=== PATIENT | male | born 1940 | race Caucasian/White ===

== ENCOUNTER 2019-01-29 18:35 | Inpatient (IN) ==
--- NOTE | 2019-01-29 18:42 | Emergency Department Note ---
Disposition Clinical Impression: GI bleed Qualifiers: GI bleed type/associated pathology: melena Qualified Code(s): K92.1 - Melena CKD (chronic kidney disease) Qualifiers: Chronic kidney disease stage: unspecified stage Qualified Code(s): N18.9 - Chronic kidney disease, unspecified Disposition: Admitted As Inpatient Condition: Fair [facility] Provider[facility] - Time of Disposition: 20:32 General Adult HPI - General Stated complaint: GI Time Seen by Provider: 01/29/19 18:37 Source: patient Mode of arrival: ambulatory Limitations: no limitations Nursing Notes Reviewed: Yes Vital Signs Reviewed: Yes - History of Present Illness HPI Narrative: Patient is a 78-year-old male with a past medical history of CHF, pacemaker/defibrillator, [place], diabetes, high cholesterol and diverticulitis and partial small bowel obstruction presents to the ED for evaluation of hypotension and concern for bloody stools. Patient is complaining of shortness of breath since 5 days ago. 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 They were holding his Lasix due to a low systolic pressure of 100. Patient does admit to one week of black stool. His EF is 15%, hx of one stent placed and atrial flutter. Recently changed his apixaban and and plavis recently switched to Elliq uis. - Related Data Home Medications Medication Instructions Recorded Confirmed Atorvastatin [Lipitor] 40 mg PO HS 05/08/18 01/29/19 Clopidogrel [Plavix] 75 mg PO HS 05/08/18 01/29/19 Insulin Glargine,Hum.rec.anlog 5 units SQ BID 05/08/18 01/29/19 [Toujedavid Solostar] Insulin LISPRO [Humalog] 5 unit SQ TIDAC 05/08/18 01/29/19 Metoprolol Succinate [Kapspargo 12.5 mg PO Q12H 05/08/18 01/29/19 Sprinkle] Potassium Chloride [Klor-Con] 20 meq PO DAILY 05/08/18 01/29/19 Apixaban [Eliquis] 5 mg PO BID 01/29/19 01/29/19 Lisinopril 2.5 mg PO HS 01/29/19 01/29/19 Midodrine HCl 5 mg PO TID 01/29/19 01/29/19 Sertraline 2.5 mg PO DAILY 01/29/19 01/29/19 Allergies Allergy/AdvReac Type Severity Reaction Status Date / Time No Known Allergies Allergy Verified 01/29/19 18:48 All systems ED: reviewed and negative except as stated. Review of Systems: As Per HPI Cardiovascular: Reports: dyspnea on exertion. Denies: chest pain, palpitations Respiratory: Reports: cough, dyspnea. Denies: wheezes, hemoptysis, sputum production Gastrointestinal: Reports: melena. Denies: abdominal pain, nausea, vomiting, diarrhea, constipation, hematemesis, hematochezia Genitourinary: Denies: hematuria Integumentary: Denies: rash Past Medical History - Past Medical History Attestation: Yes The following information was validated with the patient. Medical history: Reports: CHF, diabetes, hyperlipidemia, hypertension, myocardial infarction - Social History Smoking Status: Former smoker Physical Exam - General Limitations: no limitations General appearance: alert, in no apparent distress - Head Head exam: atraumatic, normocephalic, normal inspection - Eye Eye exam: Present: normal appearance, PERRL, EOMI - ENT ENT exam: normal exam, normal oropharynx, mucous membranes moist - Neck Neck exam: Present: normal inspection, full ROM, trachea midline - Chest Chest inspection: Present: normal inspection, symmetric chest wall rise - Respiratory Respiratory exam: Present: normal lung sounds bilaterally. Absent: respiratory distress, wheezes, prolonged expiratory phase - Cardiovascular Cardiovascular exam: Present: regular rate, normal rhythm, normal heart sounds, +S1, +S2 - Abdominal Exam Abdominal exam: Present: soft, Non-Tender. Absent: tenderness, distention, guarding, rebound, rigidity - Rectal Exam Cathode Washer present during exam: Yes (Rosario, MS4) Rectal exam: Present: heme (+) stool. Absent: hemorrhoids - Male exam: Present: normal inspection - Extremities Exam Extremities exam: Present: normal inspection, full ROM. Absent: tenderness, pedal edema - Back Exam Back exam: Present: normal inspection, full ROM. Absent: tenderness - Neurological Exam Neurological exam: Present: alert, oriented X3 - Psychiatric Psychiatric exam: Present: normal affect, normal mood - Skin Skin exam: Present: warm, dry, intact, pallor Course Course Narrative: Patient undergo evaluation for GI bleed. - Reevaluation(s) Reevaluation #1: His initial blood pressure was 103/56. He is satting at 100% on room air. His heart rate is 85. And went workup with cardiac enzymes, chest x-ray, EKG, CBC and basic metabolic panel. CBC remarkable for hemoglobin of 7.3. 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 INR is 3.1. Patient's creatinine is 1.54 which is improved [facility] 1.[facility]. Troponin is negative. Patient will undergo transfusion with a total of 2 units after speaking with the hospitalist on-call. They agree to accept the patient. Time: 20:30 Vital Signs Temperature 98.2 F 01/29/19 18:38 Pulse Rate 85 01/29/19 18:38 Respiratory Rate 18 01/29/19 18:38 Blood Pressure 103/56 01/29/19 18:38 O2 Sat by Pulse Oximetry 100 01/29/19 18:38 Temperature 97.6 F 01/29/19 20:58 Pulse Rate 86 01/29/19 20:58 Respiratory Rate 16 01/29/19 20:58 Blood Pressure 82/49 01/29/19 20:58 O2 Sat by Pulse Oximetry 100 01/29/19 20:58 Oxygen Delivery Oxygen Delivery Room Air Medical Decision Making - Medical Records Medical records reviewed: Yes I reviewed the patient's medical records. - Lab Data Lab results reviewed: Yes I reviewed the patient's lab results. Result diagrams: 01/29/19 19:07 01/29/19 19:07 Lab Results 01/29/19 01/29/19 01/29/19 Range/Units 19:07 19:07 19:07 WBC 15.4 H (4.3-11.1) K/mcL RBC 3.23 L (4.19-5.50) M/mcL Hgb 7.3 L (12.9-16.9) g/dL Hct 24.6 L (37.5-50.1) % MCV 76.2 L (83.0-100.0) fL MCH 22.6 L (28.0-33.3) pg MCHC 29.7 L (31.6-35.5) g/dL RDW 17.1 H (11.5-14.5) % Plt Count 344 (140-400) K/mcL MPV 8.9 L (9.4-12.4) fL Immature Gran % 0.7 (0-4) % Seg Neutrophils % 73.6 % Lymphocytes % 13.1 % Monocytes % 11.7 % Eosinophils % 0.5 % Basophils % 0.4 % Neutrophils # 11.4 H (1.6-8.9) K/mcL Lymphocytes # 2.0 (0.6-4.6) K/mcL Monocytes # 1.8 H (0.0-1.3) K/mcL Eosinophils # 0.1 (0.0-0.6) K/mcL Basophils # 0.1 (0.0-0.2) K/mcL Nucleated RBCs/100 WBC 1.4 H (0) /100 WBC PT 34.8 H (9.4-12.1) Seconds INR 3.1 APTT 37.7 H (26.0-36.0) Seconds Sodium 129 L (136-145) mEq/L Potassium 4.7 (3.5-5.1) mEq/L Chloride 98 (98-107) mEq/L Carbon Dioxide 17 L (23-29) mEq/L BUN 53 H (8-23) mg/dL Creatinine 1.54 H (0.70-1.30) mg/dL Est GFR ( Amer) 53 L (> 60) Est GFR (Non-Af Amer) 44 L (> 60) BUN/Creatinine Ratio 34 H (6-26) Glucose 117 H (70-105) mg/dL Calculated Osmolality 283 (280-300) Calcium 8.8 (8.6-10.3) mg/dL Troponin I < 0.03 (< 0.04) ng/mL Stool Occult Bld Scrn (Negative) Blood Type Antibody Screen Crossmatch 01/29/19 01/29/19 Range/Units 19:07 19:50 WBC (4.3-11.1) K/mcL RBC (4.19-5.50) M/mcL Hgb (12.9-16.9) g/dL Hct (37.5-50.1) % MCV (83.0-100.0) fL MCH (28.0-33.3) pg MCHC (31.6-35.5) g/dL RDW (11.5-14.5) % Plt Count (140-400) K/mcL MPV (9.4-12.4) fL Immature Gran % (0-4) % Seg Neutrophils % % Lymphocytes % % Monocytes % % Eosinophils % % Basophils % % Neutrophils # (1.6-8.9) K/mcL Lymphocytes # (0.6-4.6) K/mcL Monocytes # (0.0-1.3) K/mcL Eosinophils # (0.0-0.6) K/mcL Basophils # (0.0-0.2) K/mcL Nucleated RBCs/100 WBC (0) /100 WBC PT (9.4-12.1) Seconds INR APTT (26.0-36.0) Seconds Sodium (136-145) mEq/L Potassium (3.5-5.1) mEq/L Chloride (98-107) mEq/L Carbon Dioxide (23-29) mEq/L BUN (8-23) mg/dL Creatinine (0.70-1.30) mg/dL Est GFR ( Amer) (> 60) Est GFR (Non-Af Amer) (> 60) BUN/Creatinine Ratio (6-26) Glucose (70-105) mg/dL Calculated Osmolality (280-300) Calcium (8.6-10.3) mg/dL Troponin I (< 0.04) ng/mL Stool Occult Bld Scrn Positive A (Negative) Blood Type O POSITIVE Antibody Screen NEGATIVE Crossmatch See Detail - Radiology Data Radiology results reviewed: Yes I reviewed the patient's radiology results. Chest X-Ray 01/29/19 18:51 IMPRESSION: Findings suggest congestive heart failure with an elevated right hemidiaphragm D/ / Gerardo Lazaro MD / Gerardo Lazaro MD Interpreting Provider: Gerardo Lazaro MD - EKG Data EKG #1 EKG attestation: Yes I reviewed and interpreted this EKG. EKG results narrative: EKG done at 18:46 shows sinus rhythm at a rate of 86 bpm. Normal axis. Intervals within normal limits. No signs of ischemia.
[2019-01-29] MEDS ORDERED: Isovue-370 500 ML BOTTLE IVP ONE (19:24)
[2019-01-29 19:27] LABS: Basophils # 0.1 K/mcL (0.0-0.2); Basophils % 0.4 %; Eosinophils # 0.1 K/mcL (0.0-0.6); Eosinophils % 0.5 %; Hematocrit 24.6 % (37.5-50.1); Hemoglobin 7.3 g/dL (12.9-16.9); Immature Granulocytes % 0.7 % (0-4); Lymphocytes % 13.1 %; Mean Corpuscular HGB Conc 29.7 g/dL (31.6-35.5); Mean Corpuscular Hemoglobin 22.6 pg (28.0-33.3); Mean Corpuscular Volume 76.2 fL (83.0-100.0); Mean Platelet Volume 8.9 fL (9.4-12.4); Monocytes # 1.8 K/mcL (0.0-1.3); Monocytes % 11.7 %; Neutrophils # 11.4 K/mcL (1.6-8.9); Nucleated Red Blood Cells 1.4 /100 WBC (0); Platelet Count 344 K/mcL (140-400); Red Blood Count 3.23 M/mcL (4.19-5.50); Red Cell Distribution Width 17.1 % (11.5-14.5); Segmented Neutrophils % 73.6 %; White Blood Count 15.4 K/mcL (4.3-11.1)
[2019-01-29 19:35] LABS: INR 3.1; Prothrombin Time 34.8 Seconds (9.4-12.1)
[2019-01-29 19:37] LABS: Activated Partial Thrombo Time 37.7 Seconds (26.0-36.0)
[2019-01-29 19:50] LABS: BUN/Creatinine Ratio 34 (6-26); Blood Urea Nitrogen 53 mg/dL (8-23); Calcium 8.8 mg/dL (8.6-10.3); Carbon Dioxide 17 mEq/L (23-29); Chloride 98 mEq/L (98-107); Glucose 117 mg/dL (70-105); Osmolality,Calculated 283 (280-300); Potassium 4.7 mEq/L (3.5-5.1); Sodium 129 mEq/L (136-145); eGFR For African Americans 53 (> 60); eGFR For Non-African Americans 44 (> 60)
[2019-01-29 19:51] LABS: Troponin I < 0.03 ng/mL (< 0.04)
[2019-01-29] MEDS ORDERED: 0.9 % Sodium Chloride 250 ML ONE (20:28)
--- NOTE | 2019-01-29 21:08 | Emergency Department Note ---
Disposition Clinical Impression: GI bleed Qualifiers: GI bleed type/associated pathology: melena Qualified Code(s): K92.1 - Melena CKD (chronic kidney disease) Qualifiers: Chronic kidney disease stage: unspecified stage Qualified Code(s): N18.9 - Chronic kidney disease, unspecified Disposition: Admitted As Inpatient Condition: Fair [facility] [Primary Care Provider[facility] - Time of Disposition: 21:08 General Adult HPI - General Chief complaint: ED GI Bleed Stated complaint: GI Time Seen by Provider: 01/29/19 18:37 Source: patient Mode of arrival: ambulatory Limitations: no limitations - History of Present Illness Pain Scale: 0 - Related Data Home Medications Medication Instructions Recorded Confirmed Atorvastatin [Lipitor] 40 mg PO HS 05/08/18 01/29/19 Clopidogrel [Plavix] 75 mg PO HS 05/08/18 01/29/19 Insulin Glargine,Hum.rec.anlog 5 units SQ BID 05/08/18 01/29/19 [Toujeo Solostar] Insulin LISPRO [Humalog] 5 unit SQ TIDAC 05/08/18 01/29/19 Metoprolol Succinate [Kapspargo 12.5 mg PO Q12H 05/08/18 01/29/19 Sprinkle] Potassium Chloride [Klor-Con] 20 meq PO DAILY 05/08/18 01/29/19 Apixaban [Eliquis] 5 mg PO BID 01/29/19 01/29/19 Lisinopril 2.5 mg PO HS 01/29/19 01/29/19 Midodrine HCl 5 mg PO TID 01/29/19 01/29/19 Sertraline 2.5 mg PO DAILY 01/29/19 01/29/19 Allergies Allergy/AdvReac Type Severity Reaction Status Date / Time No Known Allergies Allergy Verified 01/29/19 18:48 Cardiovascular: Reports: dyspnea on exertion. Denies: chest pain, palpitations Respiratory: Reports: cough, dyspnea. Denies: wheezes, hemoptysis, sputum production Gastrointestinal: Reports: melena. Denies: abdominal pain, nausea, vomiting, diarrhea, constipation, hematemesis, hematochezia Genitourinary: Denies: hematuria Integumentary: Denies: rash Past Medical History - Past Medical History Medical history: Reports: CHF, diabetes, hyperlipidemia, myocardial infarction - Social History Smoking Status: Former smoker Smokeless Tobacco Status: No Alcohol use: Reports: none Drug use: Reports: none Physical Exam - General Limitations: no limitations General appearance: alert, in no apparent distress Course Vital Signs Temperature 98.2 F 01/29/19 18:38 Pulse Rate 85 01/29/19 18:38 Respiratory Rate 18 01/29/19 18:38 Blood Pressure 103/56 01/29/19 18:38 O2 Sat by Pulse Oximetry 100 01/29/19 18:38 Temperature 97.6 F 01/29/19 20:58 Pulse Rate 86 01/29/19 20:58 Respiratory Rate 16 01/29/19 20:58 Blood Pressure 82/49 01/29/19 20:58 O2 Sat by Pulse Oximetry 100 01/29/19 20:58 Oxygen Delivery Oxygen Delivery Room Air Medical Decision Making - Lab Data Result diagrams: 01/29/19 19:07 01/29/19 19:07 Lab Results 01/29/19 01/29/19 01/29/19 Range/Units 19:07 19:07 19:07 WBC 15.4 H (4.3-11.1) K/mcL RBC 3.23 L (4.19-5.50) M/mcL Hgb 7.3 L (12.9-16.9) g/dL Hct 24.6 L (37.5-50.1) % MCV 76.2 L (83.0-100.0) fL MCH 22.6 L (28.0-33.3) pg MCHC 29.7 L (31.6-35.5) g/dL RDW 17.1 H (11.5-14.5) % Plt Count 344 (140-400) K/mcL MPV 8.9 L (9.4-12.4) fL Immature Gran % 0.7 (0-4) % Seg Neutrophils % 73.6 % Lymphocytes % 13.1 % Monocytes % 11.7 % Eosinophils % 0.5 % Basophils % 0.4 % Neutrophils # 11.4 H (1.6-8.9) K/mcL Lymphocytes # 2.0 (0.6-4.6) K/mcL Monocytes # 1.8 H (0.0-1.3) K/mcL Eosinophils # 0.1 (0.0-0.6) K/mcL Basophils # 0.1 (0.0-0.2) K/mcL Nucleated RBCs/100 WBC 1.4 H (0) /100 WBC PT 34.8 H (9.4-12.1) Seconds INR 3.1 APTT 37.7 H (26.0-36.0) Seconds Sodium 129 L (136-145) mEq/L Potassium 4.7 (3.5-5.1) mEq/L Chloride 98 (98-107) mEq/L Carbon Dioxide 17 L (23-29) mEq/L BUN 53 H (8-23) mg/dL Creatinine 1.54 H (0.70-1.30) mg/dL Est GFR ( Amer) 53 L (> 60) Est GFR (Non-Af Amer) 44 L (> 60) BUN/Creatinine Ratio 34 H (6-26) Glucose 117 H (70-105) mg/dL Calculated Osmolality 283 (280-300) Calcium 8.8 (8.6-10.3) mg/dL Troponin I < 0.03 (< 0.04) ng/mL Stool Occult Bld Scrn (Negative) Blood Type Antibody Screen Crossmatch 01/29/19 01/29/19 Range/Units 19:07 19:50 WBC (4.3-11.1) K/mcL RBC (4.19-5.50) M/mcL Hgb (12.9-16.9) g/dL Hct (37.5-50.1) % MCV (83.0-100.0) fL MCH (28.0-33.3) pg MCHC (31.6-35.5) g/dL RDW (11.5-14.5) % Plt Count (140-400) K/mcL MPV (9.4-12.4) fL Immature Gran % (0-4) % Seg Neutrophils % % Lymphocytes % % Monocytes % % Eosinophils % % Basophils % % Neutrophils # (1.6-8.9) K/mcL Lymphocytes # (0.6-4.6) K/mcL Monocytes # (0.0-1.3) K/mcL Eosinophils # (0.0-0.6) K/mcL Basophils # (0.0-0.2) K/mcL Nucleated RBCs/100 WBC (0) /100 WBC PT (9.4-12.1) Seconds INR APTT (26.0-36.0) Seconds Sodium (136-145) mEq/L Potassium (3.5-5.1) mEq/L Chloride (98-107) mEq/L Carbon Dioxide (23-29) mEq/L BUN (8-23) mg/dL Creatinine (0.70-1.30) mg/dL Est GFR ( Amer) (> 60) Est GFR (Non-Af Amer) (> 60) BUN/Creatinine Ratio (6-26) Glucose (70-105) mg/dL Calculated Osmolality (280-300) Calcium (8.6-10.3) mg/dL Troponin I (< 0.04) ng/mL Stool Occult Bld Scrn Positive A (Negative) Blood Type O POSITIVE Antibody Screen NEGATIVE Crossmatch See Detail Attestation Statement - Attestation Attestation: I reviewed the residents documentation and agree with the residents assessment and plan of care. I have personally had face to face time with the patient. (Brief History, Brief Exam, and MDM) I personally supervised and was present for the jefferson/critical portions of the following procedures completed by the resident: (add procedures performed here). 78 year old male presents to the ED from the [place] for GI bleed and is symptomatic. He has a postiive hemoccult and a hgb of 7.3, we will transfuse one unit and ABCT is pending. Have discussed case with Dr. Love with medicine and he has been accepted to medicine.
[2019-01-29] MEDS ORDERED: Naloxone 0.4 MG/ML INJ IVP PRN (21:30)
[2019-01-29] MEDS ORDERED: Pantoprazole 40 MG VIAL IVP STA (21:36)
--- NOTE | 2019-01-29 21:41 | Internal Med History&Physical ---
<Rocio Carlson R - Last Filed: 01/29/19 22:27> Date of Encounter: 01/29/19 Time of Encounter: 21:41 Internal Medicine - H&P: HPI Admitted From: Home History of present illness: Mr. Graham is a 78 year old male with a history of DM, CHF with AICD and EF of 1 5%, intermittent afib who presented to the emergency department with the complaint of worsening swelling over the past 5 days. Patient states that he has been dealing with "congestion" since he had a stent placed in March. He states the congestion is the worst in his abdomen and legs. He has also had worsening shortness of breath over these past 5 days and believes that he is in a CHF exacerbation. The patient does take Plavix and Eliquis for his stent and atrial fibrillation. His hemoglobin was found to be 7.3 while he was in the emergency department and when asked he noted that he has had some dark tarry stools for the past several days as well. He initially thought that it was due to the stool softeners that he takes as he suffers from constipation from time to time. He denies any abdominal pain and has not vomited any blood. He has had a decreased appetite and nausea since his CHF exacerbation started. He denies recent fevers, chills, chest pain or pressure, leg pain, other symptoms at this time. He does not believe that he has never been evaluated for a GI bleed before. Past Med Surg Social Fam HX - Past Medical History Medical history: CHF, diabetes, hyperlipidemia, myocardial infarction Additional medical history: hypotension, diverticulitis, - Past Surgical History Additional surgical history: Pacemaker - Social History Smoking Status: Former smoker Smokeless Tobacco Status: No Alcohol use: none Drug use: none Internal Medicine - H&P: Meds Atorvastatin [Lipitor] 40 mg PO HS 05/08/18 [History] Clopidogrel [Plavix] 75 mg PO HS 05/08/18 [History] Insulin Glargine,Hum.rec.anlog [Toujeo Solostar] 5 units SQ BID 05/08/18 [History] Insulin LISPRO [Humalog] 5 unit SQ TIDAC 05/08/18 [History] Metoprolol Succinate [Kapspargo Sprinkle] 12.5 mg PO Q12H 05/08/18 [History] Potassium Chloride [Klor-Con] 20 meq PO DAILY 05/08/18 [History] Apixaban [Eliquis] 5 mg PO BID 01/29/19 [History] Lisinopril 2.5 mg PO HS 01/29/19 [History] Midodrine HCl 5 mg PO TID 01/29/19 [History] Sertraline 2.5 mg PO DAILY 01/29/19 [History] Allergy/AdvReac Type Severity Reaction Status Date / Time No Known Allergies Allergy Verified 01/29/19 18:48 All Systems PM: A 10-system review of systems was performed and is negative for pertinent findings except as documented above in the HPI. - Constitutional Constitutional: anorexia, no chills - EENT Eyes: no blurry vision, no change in vision - Cardiovascular Cardiovascular ROS IM: dyspnea, dyspnea on exertion, edema, no chest pain, no lightheadedness, no syncope - Respiratory Respiratory: dyspnea, no cough, no wheezing - Gastrointestinal Gastrointestinal: constipation, melena, nausea, no abdominal pain - Genitourinary Genitourinary ROS male: no dysuria, no hematuria - Musculoskeletal Musculoskeletal ROS IM: no back pain, no joint swelling - Integumentary Integumentary IM: no rash, no jaundice - Neurological Neurological ROS: no confusion, no dizziness, no paresthesias, no vertigo - Endocrine Endocrine IM: fatigue - Allergic/Immunologic Allergic/Immunologic: no uticaria, no wheezing - Constitutional Vitals: Temp Pulse Resp BP Pulse Ox 97.6 F 85 16 91/58 100 01/29/19 20:58 01/29/19 21:16 01/29/19 21:16 01/29/19 21:16 01/29/19 21:16 General appearance: Present: A&O X 3, pleasant, no acute distress Exam: Patient evaluated and currently A&O 3 in no acute distress - Head Head exam: Present: atraumatic, normocephalic - Eye Eye exam: Present: EOMI, PERRL - ENT ENT exam: Present: normal exam, normal oropharynx - Neck Neck exam general surgery: Present: normal inspection. Absent: lymphadenopathy, tenderness - Respiratory Respiratory exam: Present: rales (mild in the lung bases). Absent: chest wall tenderness, wheezes - Cardiovascular Cardiovascular exam: Present: irregular rhythm - GI/Abdominal GI/Abdominal exam: Present: soft, no peritoneal signs. Absent: distended, firm, rebound, rigid, tenderness - Extremities Exam Extremities exam: Present: pedal edema (trace), warm. Absent: calf tenderness, tenderness - Neurological Exam Neurological exam: Present: alert, oriented X3, no focal deficits - Psychiatric Psychiatric exam: Present: normal affect, normal mood - Skin Skin exam: Present: dry, intact, warm Internal Med - H&P Results - Labs CBC & Chem 7: 01/29/19 19:07 01/29/19 19:07 Labs: Short CBC 01/29/19 Range/Units 19:07 WBC 15.4 H (4.3-11.1) K/mcL Hgb 7.3 L (12.9-16.9) g/dL Hct 24.6 L (37.5-50.1) % Plt Count 344 (140-400) K/mcL Neutrophils # 11.4 H (1.6-8.9) K/mcL BMP 01/29/19 19:07 Sodium 129 L Potassium 4.7 Chloride 98 Carbon Dioxide 17 L BUN 53 H Creatinine 1.54 H Glucose 117 H Calcium 8.8 Cardiac Enzymes 01/29/19 Range/Units 19:07 Troponin I < 0.03 (< 0.04) ng/mL - Impressions ITS Impressions Chest X-Ray 01/29/19 18:51 IMPRESSION: Findings suggest congestive heart failure with an elevated right hemidiaphragm D/ / Gerardo Lazaro MD / Gerardo Lazaro MD Interpreting Provider: Gerardo Lazaro MD Abdomen/Pelvis CT 01/29/19 19:24 IMPRESSION: Small moderate amount of abdominal ascites. Small hiatal hernia. Enlarged prostate gland. Diffuse wall thickening the urinary bladder may be related to chronic outlet obstruction. Correlation is recommended. Moderate right and trace left pleural effusions with dependent lower lobe airspace disease, likely atelectasis. D/ / Felicitas Pteit Cha, MD / Felicitas Petit Cha, MD Interpreting Provider: Felicitas Petit Cha, MD - Assessment and Plan (1) GI bleed Current Visit: Yes Status: Acute Assessment and plan: Patient's hemoglobin in the emergency Department 7.3 Fecal occult blood was positive Type and screen with 2 units of packed red blood cells - 1 to be given and 1 on standby 40mg IV protonix Consult acute care surgery - Dr. Amin recommends resuscitation at this point and re-evaluation for endoscopy tomorrow Qualifiers: GI bleed type/associated pathology: melena Qualified Code(s): K92.1 - Melena (2) Anemia Current Visit: Yes Status: Acute Assessment and plan: Hemoglobin 7.3 in the emergency department 2 units PRBCs ordered, transfusing 1 and 1 on hold Repeat CBC after transfusion Plan as above for GI bleed Qualifiers: Anemia type: unspecified type Qualified Code(s): D64.9 - Anemia, unspecified (3) CHF exacerbation Current Visit: Yes Status: Acute Assessment and plan: History of CHF with less than injection fraction of 15% Patient with 5 days of worsening shortness of breath and swelling Chest x-ray shows evidence of CHF exacerbation Due to the patient's anemia and hypotension 2 units of packed red blood cells were ordered We will gently diurese Echo to determine current ejection fraction in the morning Patient's blood pressure in the 100s/60s, continue to monitor Qualifiers: Heart failure type: unspecified Qualified Code(s): I50.9 - Heart failure, unspecified (4) Diabetes mellitus Current Visit: Yes Status: Acute Assessment and plan: Low-dose sliding scale insulin Cont home medications Qualifiers: Diabetes mellitus type: type 2 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: with [facility]p use Diabetes mellitus complication status: with other specified complication Qualified Code(s): E11.69 - Type 2 diabetes mellitus with other specified complication; Z79.4 - jail (current) use of insulin (5) CKD (chronic kidney disease) Current Visit: Yes Status: Acute Assessment and plan: Patient's creatinine 1.53 No baseline creatinine Due to CHF exacerbation we will not order additional fluids but will just transfuse blood at this time We will gently diurese with Lasix but continued to monitor the creatinine Qualifiers: Chronic kidney disease stage: unspecified stage Qualified Code(s): N18.9 - Chronic kidney disease, unspecified (6) DVT prophylaxis Current Visit: Yes Status: Acute Assessment and plan: EPCDs - Time Spent With Patient Total time spent is greater than 50% in coordination of care (as documented) at patient's floor/unit and/or counseling patient: <Dyan Watts - Last Filed: 01/29/19 23:45> Date of Encounter: 01/29/19 Internal Medicine - H&P: HPI History of present illness: Mr. Graham is a 78 year old male Past Med Surg Social Fam HX - Additional Family History Additional family history: Noncontributory All Systems PM: A 10-system review of systems was performed and is negative for pertinent findings except as documented above in the HPI. - Constitutional Vitals: Temp Pulse Resp BP Pulse Ox 97.6 F 86 18 105/66 96 01/29/19 21:50 01/29/19 22:00 01/29/19 22:00 01/29/19 22:00 01/29/19 22:00 Internal Med - H&P Results - Labs CBC & Chem 7: 01/29/19 19:07 01/29/19 19:07 Labs: Short CBC 01/29/19 Range/Units 19:07 WBC 15.4 H (4.3-11.1) K/mcL Hgb 7.3 L (12.9-16.9) g/dL Hct 24.6 L (37.5-50.1) % Plt Count 344 (140-400) K/mcL Neutrophils # 11.4 H (1.6-8.9) K/mcL BMP 01/29/19 19:07 Sodium 129 L Potassium 4.7 Chloride 98 Carbon Dioxide 17 L BUN 53 H Creatinine 1.54 H Glucose 117 H Calcium 8.8 Cardiac Enzymes 01/29/19 Range/Units 19:07 Troponin I < 0.03 (< 0.04) ng/mL - Impressions ITS Impressions Chest X-Ray 01/29/19 18:51 IMPRESSION: Findings suggest congestive heart failure with an elevated right hemidiaphragm D/ / Gerardo Lazaro MD / Gerardo Lazaro MD Interpreting Provider: Gerardo Lazaro MD Abdomen/Pelvis CT 01/29/19 19:24 IMPRESSION: Small moderate amount of abdominal ascites. Small hiatal hernia. Enlarged prostate gland. Diffuse wall thickening the urinary bladder may be related to chronic outlet obstruction. Correlation is recommended. Moderate right and trace left pleural effusions with dependent lower lobe airspace disease, likely atelectasis. D/ / Felicitas Petit Cha, MD / Felicitas Petit Cha, MD Interpreting Provider: Felicitas Petit Cha, MD - Time Spent With Patient Total time spent is greater than 50% in coordination of care (as documented) at patient's floor/unit and/or counseling patient: - Attending Attestation I performed a history and physical examination of the patient and discussed his management with the resident. I reviewed the resident's note and agree with the assessment and plan of care. In short patient is a 78-year-old male [facility] patient with a past medical history of heart failure with reduced ejection fraction with an EF of 15%, diabetes and atrial fibrillation currently on anticoagulation presented to the ED because of progressive shortness of breath over the past 5 days. On arrival patient was found to be anemic with a hemoglobin of 7.3 in the setting of reports of black tarry stools over the past 5 days. Hemoccult testing in the ED was positive. On arrival, patient was afebrile and hemodynamically stable with a blood pressure of 103/56, however, blood pressure dropped down to 82/49 several hours later. Patient was saturating 100% on 2 L. Patient was not tachycardic, however he is on a beta obinna. 2 large bore peripheral IV lines were placed and 1 unit of packed red blood cells was initiated. On my initial assessment in the patient, he was lying in bed in no acute distress mentating well. was at bedside. A detailed log of the patient's blood pressure was provided which showed a baseline systolic blood pressure in the upper 80s to 90s over the past month which appears to be his baseline. Remainder of labs notable for a leukocytosis of 15.4, mild hyponatremia 129, creatinine of 1.54 and INR 3.1. Chest x-ray showed findings suggestive of congestive heart failure with an elevated right hemidiaphragm. CT of the abdomen and pelvis showed a small amount of abdominal ascites. 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 Physical examination and notable for mild crackles at the right lung base. No evidence of lower extremity edema. EKG showing sinus rhythm. Patient denies any fever, chills, chest pain. Patient does report a productive cough. Patient admitted for possible upper GI bleed as well as CHF exacerbation. We will transfuse 1 unit of packed red blood cells; strict I's and O's and daily weights with care not to further exacerbate his fluid overload state given his EF of 15%. Trend hemoglobin. After 1 unit of blood and will gently diurese with Lasix. We will obtain echocardiogram for the morning. We will keep patient nothing by mouth for possible endoscopy in the morning. Holding anticoagulation. We will obtain pro-calcitonin level, sputum culture and urine antigen given patient's leukocytosis and reports of a productive cough to assess for evidence of airspac e disease. Consult to Gastroenterology. Consider cardiology consult for management of CHF.
[2019-01-29] MEDS ORDERED: D5% in Water 1,000 ML IVC PRN (21:55)
[2019-01-29] MEDS ORDERED: *HR* Dextrose 50 % in Water (Syg) 50 ML SYRINGE IVP PRN (21:55)
[2019-01-29] MEDS ORDERED: Dextrose Gel 15 GM/37.5 ML TUBE PO PRN ×2 (21:55)
[2019-01-29] MEDS ORDERED: Furosemide 20 MG/2 ML VIAL IVP ONE (21:57)
[2019-01-29] MEDS: Metoprolol XL (24 HR) Succ 25 MG TAB.ER.24H PO SCH (23:08)
[2019-01-29] MEDS: Insulin LISPRO 300 UNITS/3 ML VIAL SQ SCH (23:41)
[2019-01-30 01:13] LABS: Basophils % 0.3 %; Eosinophils # 0.1 K/mcL (0.0-0.6); Eosinophils % 0.7 %; Hematocrit 25.6 % (37.5-50.1); Hemoglobin 7.7 g/dL (12.9-16.9); Immature Granulocytes % 0.6 % (0-4); Lymphocytes # 1.5 K/mcL (0.6-4.6); Lymphocytes % 12.4 %; Mean Corpuscular HGB Conc 30.1 g/dL (31.6-35.5); Mean Corpuscular Hemoglobin 23.8 pg (28.0-33.3); Mean Platelet Volume 8.7 fL (9.4-12.4); Monocytes # 1.3 K/mcL (0.0-1.3); Monocytes % 10.6 %; Neutrophils # 8.9 K/mcL (1.6-8.9); Nucleated Red Blood Cells 1.6 /100 WBC (0); Platelet Count 319 K/mcL (140-400); Red Blood Count 3.24 M/mcL (4.19-5.50); Red Cell Distribution Width 18.7 % (11.5-14.5); Segmented Neutrophils % 75.4 %; White Blood Count 11.8 K/mcL (4.3-11.1)
[2019-01-30 01:26] LABS: Albumin 3.8 g/dL (3.5-5.7); Albumin/Globulin Ratio 1.4 (1.1-2.2); Bilirubin,Total 1.6 mg/dL (0.3-1.0); Calcium 8.6 mg/dL (8.6-10.3); Globulin 2.8 g/dL (2.4-3.5); Magnesium 2.3 mg/dL (1.6-2.6); Phosphorous 4.4 mg/dL (2.7-4.5); Potassium 4.8 mEq/L (3.5-5.1); Total Protein 6.6 g/dL (6.4-8.9)
[2019-01-30 05:23] LABS: Basophils % 0.2 %; Eosinophils # 0.1 K/mcL (0.0-0.6); Eosinophils % 0.7 %; Hemoglobin 7.7 g/dL (12.9-16.9); Immature Granulocytes % 0.6 % (0-4); Lymphocytes # 1.4 K/mcL (0.6-4.6); Lymphocytes % 12.5 %; Mean Corpuscular HGB Conc 30.8 g/dL (31.6-35.5); Mean Corpuscular Hemoglobin 23.9 pg (28.0-33.3); Mean Corpuscular Volume 77.6 fL (83.0-100.0); Mean Platelet Volume 8.6 fL (9.4-12.4); Monocytes # 1.3 K/mcL (0.0-1.3); Monocytes % 11.6 %; Neutrophils # 8.1 K/mcL (1.6-8.9); Nucleated Red Blood Cells 1.5 /100 WBC (0); Platelet Count 308 K/mcL (140-400); Red Blood Count 3.22 M/mcL (4.19-5.50); Red Cell Distribution Width 18.4 % (11.5-14.5); Segmented Neutrophils % 74.4 %; White Blood Count 10.9 K/mcL (4.3-11.1)
[2019-01-30 05:43] LABS: Calcium 8.6 mg/dL (8.6-10.3); Magnesium 2.3 mg/dL (1.6-2.6); Phosphorous 4.2 mg/dL (2.7-4.5); Potassium 4.6 mEq/L (3.5-5.1)
[2019-01-30] MEDS: Insulin LISPRO 300 UNITS/3 ML VIAL SQ SCH ×3 (06:05→21:34)
[2019-01-30] MEDS ORDERED: [UNRECOGNIZED DRUG - OTHER] SQ SCH (09:00)
[2019-01-30] MEDS ORDERED: INSULIN GLARGINE HUM REC ANLOG U SQ SCH (09:00)
[2019-01-30] MEDS ORDERED: Insulin DETEMIR 100 UNIT/ML X5UNITS SQ SCH (09:00)
[2019-01-30] MEDS: Metoprolol XL (24 HR) Succ 25 MG TAB.ER.24H PO SCH ×2 (09:23→21:45)
[2019-01-30] MEDS ORDERED: Perflutren Lipid Microsphere 1.3 ML in 0.9 % Sodium Chloride 8.7 ML IVP ONE (09:31)
--- NOTE | 2019-01-30 09:38 | Internal Med Progress Note ---
Hospitalist Progress Note - Encounter Date of Encounter: 01/30/19 Time of Encounter: 09:00 - Subjective Interval History: No acute events overnight - Exam Vitals: Temp Pulse Resp BP Pulse Ox 98.1 F 99 16 112/74 96 01/30/19 07:10 01/30/19 09:00 01/30/19 09:00 01/30/19 09:00 01/30/19 09:00 Exam: General appearance: Present: A&O X 3, no acute distress Head exam: Present: normocephalic Respiratory exam: decreased breath sounds Cardiovascular exam: Present: RRR, +S1, +S2. Absent: diastolic murmur, gallop, rubs, systolic murmur GI/Abdominal exam: Soft, NT, ND, +BS Extremities exam: Absent: pedal edema Neurological exam: Present: alert, oriented X3, no focal deficits. Absent: altered - Assessment and Plan (1) GI bleed Current Visit: Yes Status: Acute Assessment and Plan: Pt comes in with dark stools and a hemoglobin of 7.3 likely secondary to acute blood loss anemia from GI bleed Transfused 1 Unit of PRBC overnight. WIll transfuse to keep above 8 due to CAD Continue protonix BID. GI on board for colonoscopy (2) CHF exacerbation Current Visit: Yes Status: Acute Assessment and Plan: Has shortness of breath and pulmonary edema with acute worsening of chronic systolic CHF Continue BID lasix (3) Anemia Current Visit: Yes Status: Acute Assessment and Plan: Anemia 2/2 to acute blood loss. Transfuse to keep hgb > 8 (4) CKD (chronic kidney disease) Current Visit: Yes Status: Acute Assessment and Plan: CKD stage 3. No acute worsening. Monitor creatinine with diuresis (5) Diabetes mellitus Current Visit: Yes Status: Acute Assessment and Plan: On insulin and monitor fingersticks (6) DVT prophylaxis Current Visit: Yes Status: Acute Assessment and Plan: SCDs - Time Spent with Patient Total time spent is greater than 50% in coordination of care (as documented) at patient's floor/unit and/or counseling patient: Internal Medicine: Result - Labs CBC & Chem 7: 01/30/19 04:54 01/30/19 04:54 Labs: Short CBC 01/29/19 01/30/19 01/30/19 Range/Units 19:07 00:54 04:54 WBC 15.4 H 11.8 H 10.9 (4.3-11.1) K/mcL Hgb 7.3 L 7.7 L 7.7 L (12.9-16.9) g/dL Hct 24.6 L 25.6 L 25.0 L (37.5-50.1) % Plt Count 344 319 308 (140-400) K/mcL Neutrophils # 11.4 H 8.9 8.1 (1.6-8.9) K/mcL BMP 01/29/19 01/30/19 01/30/19 19:07 00:54 04:54 Sodium 129 L 128 L 129 L Potassium 4.7 4.8 4.6 Chloride 98 99 99 Carbon Dioxide 17 L 16 L 20 L BUN 53 H 57 H 56 H Creatinine 1.54 H 1.54 H 1.56 H Glucose 117 H 130 H 131 H Calcium 8.8 8.6 8.6 Cardiac Enzymes 01/29/19 Range/Units 19:07 Troponin I < 0.03 (< 0.04) ng/mL Liver Function 01/30/19 Range/Units 00:54 Total Bilirubin 1.6 H (0.3-1.0) mg/dL AST 21 (13-39) Units/L ALT 14 (7-52) Units/L Alkaline Phosphatase 69 (34-104) Units/L Albumin 3.8 (3.5-5.7) g/dL - ABG Interpretation ABG results: PT/INR, D-dimer PT 34.8 Seconds (9.4-12.1) H 01/29/19 19:07 - Impressions Impressions Chest X-Ray 01/29/19 18:51 IMPRESSION: Findings suggest congestive heart failure with an elevated right hemidiaphragm D/ / Gerardo Lazaro MD / Gerardo Lazaro MD Interpreting Provider: Gerardo Lazaro MD Abdomen/Pelvis CT 01/29/19 19:24 IMPRESSION: Small moderate amount of abdominal ascites. Small hiatal hernia. Enlarged prostate gland. Diffuse wall thickening the urinary bladder may be related to chronic outlet obstruction. Correlation is recommended. Moderate right and trace left pleural effusions with dependent lower lobe airspace disease, likely atelectasis. D/ / Felicitas Petit Cha, MD / Felicitas Petit Cha, MD Interpreting Provider: Felicitas Petit Cha, MD Chest X-Ray 01/30/19 04:00 IMPRESSION: 1. Possible slight improvement in pulmonary edema. 2. Right pleural effusion with adjacent atelectasis or pneumonia. D/ / Salvatore Fountain MD / Salvatore Fountain MD Interpreting Provider: Salvatore Fountain MD Consult Discharge Plan - Plan [facility]errals: [facility]Primary Care Provider[facility] - (1) GI bleed Qualifiers: GI bleed type/associated pathology: melena Qualified Code(s): K92.1 - Melena (2) CHF exacerbation Qualifiers: Heart failure type: unspecified Qualified Code(s): I50.9 - Heart failure, unspecified (3) Anemia Qualifiers: Anemia type: unspecified type Qualified Code(s): D64.9 - Anemia, unspecified (4) CKD (chronic kidney disease) Qualifiers: Chronic kidney disease stage: unspecified stage Qualified Code(s): N18.9 - Chronic kidney disease, unspecified (5) Diabetes mellitus Qualifiers: Diabetes mellitus type: type 2 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
--- NOTE | 2019-01-30 10:29 | Anesthesia Evaluation PreOp ---
Date of Encounter: 01/30/19 Time of Encounter: 13:48 - Past History Planned Operation: EGD Cardiac History: Denies any Significant Hx (CHF, diabetes, hyperlipidemia, myocardial infarction Additional medical history: hypotension, diverticulitis,), NC, CHF, Hyperlipidemia, Pacemaker/ICD (AICD - interogated today - not pacer dependent) EDUCATIONAL THERAPIST History: Denies Any Significant HX Other Medical History: Diabetes Type II, Other (transfused 1 unit PRBC 01/29/19) Anesthesia History: No Prior Anesthetic Complications Alcohol Use: none Drug use: none Medications and Allergies Atorvastatin [Lipitor] 40 mg PO HS 05/08/18 [History] Clopidogrel [Plavix] 75 mg PO HS 05/08/18 [History] Insulin Glargine,Hum.rec.anlog [Toujeo Solostar] 5 units SQ BID 05/08/18 [History] Insulin LISPRO [Humalog] 5 unit SQ TIDAC 05/08/18 [History] Metoprolol Succinate [Kapspargo Sprinkle] 12.5 mg PO Q12H 05/08/18 [History] Potassium Chloride [Klor-Con] 20 meq PO DAILY 05/08/18 [History] Apixaban [Eliquis] 5 mg PO BID 01/29/19 [History] Lisinopril 2.5 mg PO HS 01/29/19 [History] Midodrine HCl 5 mg PO TID 01/29/19 [History] Sertraline 2.5 mg PO DAILY 01/29/19 [History] Allergy/AdvReac Type Severity Reaction Status Date / Time No Known Allergies Allergy Verified 01/29/19 18:48 - Meds/Allergy Pre-op Review Medications Reviewed: Yes Allergies Reviewed: Yes Beta Blockers on Current Med List: Yes If Beta Blockers taken, Date/Time (Last Dose taken): not given on floor - npo status Anesthesia Results - Labs 01/30/19 04:54 01/30/19 04:54 - Imaging EKG: report reviewed (SR) Additional studies: Echo with Imaging Enhancement Agent Name: Arun Graham Date of Study: 01/30/2019 EV/EV echocardiogram w enhance Impressions: LVEF 25%. Severe global and regional LV systolic dysfunction. Indeterminate diastolic function. Definity echo contrast was used. There is no LV thrombus. Right ventricular structure and systolic function are not optimally evaluated. Mild mitral regurgitation. Moderate tricuspid regurgitation. Mild pulmonic regurgitation. Moderate-severe pulmonary hypertension. A device lead was visualized in the right atrium and right ventricle. No prior echo for comparison. EXAMINATION: ONE XRAY VIEW OF THE CHEST 01/30/2019 5:46 am COMPARISON: 01/29/2019 HISTORY: ORDERING SYSTEM PROVIDED HISTORY: CHF exacerbation FINDINGS: There may be slight improvement in pulmonary edema. Right pleural effusion is noted with adjacent airspace disease. The heart size is mildly enlarged. Left chest AICD is again noted. There is no discernible pneumothorax. XR/XR chest 1V portable IMPRESSION: 1. Possible slight improvement in pulmonary edema. 2. Right pleural effusion with adjacent atelectasis or pneumonia. Anesthesia Exam Vital Signs/O2 Sat, Most Current Temp Pulse Resp BP Pulse Ox 98.3 F 95 16 107/65 96 01/30/19 12:00 01/30/19 13:00 01/30/19 13:00 01/30/19 13:00 01/30/19 13:00 NPO (# of Hours): > 8 hrs Pain Scale: 0 Pain Scale Used: Numeric (1 - 10) - HEENT Pupil (Motor): Pupils equal, EOMI Mallampati: II Teeth: Missing Denture Type: Upper: Complete Oral Opening: Greater than 3 - EDUCATIONAL THERAPIST LOC: Oriented EDUCATIONAL THERAPIST Motor: Normal RUE, Normal LUE, Normal RLE, Normal LLE, Normal Face EDUCATIONAL THERAPIST Sensory: Normal: RUE, LUE, RLE, LLE, Face - Cardiac Rhythm: Regular Murmur: None JVD: No Carotid Bruit: No - Pulmonary Breath Sounds: bilateral Clear Respiratory Effort: Symmetrical Anesthesia Assess/Plan ASA Score: 4 Anesthetic Plan: General (Plan B), MAC (PLan A) Autologous Blood: Yes Monitoring Plan: Standard Monitors Recovery Plan: ICU
--- NOTE | 2019-01-30 11:04 | Gastroenterology Consult Note ---
<Carmel Adam - Last Filed: 01/30/19 11:01> Date of Encounter: 01/30/19 Time of Encounter: 09:50 - Assessment and plan (1) GI bleed Status: Acute Assessment and plan: 78-year-old male who presented with increased shortness of breath. He has anemia has been transfused 1 unit PRBCs. He is complaining of one week history of melena. We will proceed with an EGD today to rule out esphagitis, gastritis, duodenitis, peptic ulcer disease, Susannah-Li tear or AVM. He is on chronic anticoagulation due to recent coronary artery stenting in March 2018. If no source of bleeding found he will need a colonoscopy. Qualifiers: GI bleed type/associated pathology: melena Qualified Code(s): K92.1 - Melena (2) Anemia Status: Acute Qualifiers: Anemia type: unspecified type Qualified Code(s): D64.9 - Anemia, unspecified - Time Spent With Patient Total time spent is greater than 50% in coordination of care (as documented) at patient's floor/unit and/or counseling patient: GI History of Present Illness - Data of Consult Patient: new to practice Consult date: 01/30/19 Requesting Physician: Tapan Love MD - Consult Narrative Reason for consult: melena, anemia History of present illness: Mr. Graham is a 78 year old male with a history of DM, CHF with AICD and EF of 15%, intermittent afib who presented to the emergency department with the complaint of worsening swelling over the past 5 days. Patient states that he has been dealing with "congestion" since he had a stent placed in March. He states the congestion is the worst in his abdomen and legs. He has also had worsening shortness of breath over these past 5 days. He also complains of in creased fatigue. The patient does take Plavix and Eliquis for his stent and atrial fibrillation. His hemoglobin was found to be 7.3 while he was in the emergency department and he admitted to dark tarry stools for the past week. He denies abdominal pain, GERD, or diarrhea. He admits to some constipation and takes stool softeners as needed. He reports one non-bloody emesis, denies nausea at this time. He denies recent fevers, chills, chest pain or pressure, leg pain, other symptoms at this time. He does not believe that he has never been evaluated for a GI bleed before. Anticoagulants: Plavix and Eliquis on hold Colonoscopy: at least 10 years ago per pt Past Med Surg Social Fam HX - Past Medical History Medical history: CHF, diabetes, hyperlipidemia, hypertension, myocardial infarction Additional medical history: hypotension, diverticulitis, - Past Surgical History Surgical History: angioplasty/stent, pacemaker/AICD Additional surgical history: Pacemaker - Social History Smoking Status: Former smoker Smokeless Tobacco Status: No Alcohol use: none Drug use: none - Family History Father Hx Family Cancer: Yes (Lung, throat) Review of Systems: GI: as per HABEMATOLEL GENERAL: denies fever, has some chills EYES: denies yellow discoloration ENT: denies pain with swallowing or difficulty swallowing CARDIO: see hpi RESP: Shortness of breath with exertion : denies change in color of urine NEURO: weakness HEME: Denies any bruising MS: denies joint pain, joint swelling or back pain. DERM: denies rash or itching PSYCH: Denies history of anxiety or depression - Constitutional Vitals: Temp Pulse Resp BP Pulse Ox 98.1 F 99 16 112/74 96 01/30/19 07:10 01/30/19 09:00 01/30/19 09:00 01/30/19 09:00 01/30/19 09:00 Exam: CONSTITUTIONAL:alert, no acute distress.HEAD:normocephalic.EYES:no jaundice.NECK:no obvious swelling.HEART:regular rate and rhythm, no murmurs.LUNGS:bilateral poor air entry.ABDOMEN:non distended, soft, non tender, no masses palpable, no organomegaly.RECTAL EXAM:Deferred.E XTREMITIES:no clubbing, cyanosis or edema.SKIN:pallor noted, no stigmata of chronic liver disease.NEUROLOGIC:no obvious focal defect. Results - Labs CBC & Chem 7: 01/30/19 04:54 01/30/19 04:54 Labs: Last Result 01/30/19 01/30/19 00:54 04:54 Calcium 8.6 8.6 Entire Visit 01/30/19 01/30/19 01/30/19 00:54 00:54 04:54 Hgb 7.7 L 7.7 L Hct 25.6 L 25.0 L Total Bilirubin 1.6 H AST 21 ALT 14 - ABG ABG results: PT/INR, D-dimer PT 34.8 Seconds (9.4-12.1) H 01/29/19 19:07 - Impressions Impressions Chest X-Ray 01/29/19 18:51 IMPRESSION: Findings suggest congestive heart failure with an elevated right hemidiaphragm D/ / Gerardo Lazaro MD / Gerardo Lazaro MD Interpreting Provider: Gerardo Lazaro MD Abdomen/Pelvis CT 01/29/19 19:24 IMPRESSION: Small moderate amount of abdominal ascites. Small hiatal hernia. Enlarged prostate gland. Diffuse wall thickening the urinary bladder may be related to chronic outlet obstruction. Correlation is recommended. Moderate right and trace left pleural effusions with dependent lower lobe airspace disease, likely atelectasis. D/ / Felicitas Petit Cha, MD / Felicitas Petit Cha, MD Interpreting Provider: Felicitas Petit Cha, MD Chest X-Ray 01/30/19 04:00 IMPRESSION: 1. Possible slight improvement in pulmonary edema. 2. Right pleural effusion with adjacent atelectasis or pneumonia. D/ / Salvatore Fountain MD / Salvatore Fountain MD Interpreting Provider: Salvatore Fountain MD Consult Discharge Plan - Plan [facility] Care Provider[facility] - 02/06/19 10:30 am Prescriptions: Furosemide [Lasix] 40 mg PO DAILY #60 tab Omeprazole [PriLOSEC] 40 mg PO BIDAC #60 capsule. <Sriram Weiner - Last Filed: 02/05/19 03:46> Date of Encounter: 01/30/19 - Time Spent With Patient Total time spent is greater than 50% in coordination of care (as documented) at patient's floor/unit and/or counseling patient: GI History of Present Illness - Data of Consult Requesting Physician: Tapan Love MD - Consult Narrative History of present illness: Mr. Graham is a 78 year old male - Constitutional Vitals: Temp Pulse Resp BP Pulse Ox 97.6 F 90 16 97/63 98 02/01/19 06:55 02/01/19 06:55 02/01/19 06:55 02/01/19 06:55 02/01/19 10:11 Results - Labs CBC & Chem 7: 02/01/19 04:05 02/01/19 04:05 - ABG ABG results: PT/INR, D-dimer PT 34.8 Seconds (9.4-12.1) H 01/29/19 19:07 - Attending Attestation Patient with multiple medical issues as indicated above with low EF and severe anemia with apparently no previous anemia workup. Recommend EGD and colonoscopy to determine GI etiology if, present once patient optimized. I have personally performed a face to face evaluation on this patient. I have reviewed and agree with the care plan. History and Exam by me shows:
[2019-01-30] MEDS ORDERED: Pantoprazole 40 MG VIAL IVP SCH (11:41)
[2019-01-30] MEDS ORDERED: Furosemide 40 MG/4 ML VIAL IVP SCH (12:30)
--- NOTE | 2019-01-30 14:35 | Electrocardiograph Report ---
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
[2019-01-30] MEDS ORDERED: Lidocaine -MPF 2% 2 ML VIAL ONE (15:08)
[2019-01-30] MEDS ORDERED: *HR* Propofol 200 MG/20 ML VIAL IVP ONE (15:09)
[2019-01-30] MEDS ORDERED: *HR* Etomidate 40 MG/20 ML VIAL IVP ONE (15:10)
[2019-01-30] MEDS ORDERED: Naloxone 0.4 MG/ML INJ IVP PRN (15:42)
[2019-01-30] MEDS ORDERED: Isovue-370 500 ML BOTTLE IVP ONE (15:42)
[2019-01-30] MEDS ORDERED: *HR* Dextrose 50 % in Water (Syg) 50 ML SYRINGE IVP PRN (15:42)
[2019-01-30] MEDS ORDERED: Dextrose Gel 15 GM/37.5 ML TUBE PO PRN ×2 (15:42)
[2019-01-30] MEDS ORDERED: D5% in Water 1,000 ML IVC PRN (15:42)
[2019-01-30] MEDS ORDERED: 0.9 % Sodium Chloride 500 ML ONE (17:42)
[2019-01-30] MEDS ORDERED: Insulin LISPRO 300 UNITS/3 ML VIAL SQ SCH (18:00)
[2019-01-30] MEDS: Furosemide 40 MG/4 ML VIAL IVP SCH (19:50)
[2019-01-30] MEDS: Pantoprazole 40 MG VIAL IVP SCH (19:50)
[2019-01-30] MEDS ORDERED: 0.9 % Sodium Chloride 250 ML ONE (21:44)
[2019-01-30] MEDS: Insulin DETEMIR 100 UNIT/ML X5UNITS SQ SCH (22:50)
[2019-01-31 05:20] LABS: Basophils % 0.2 %; Eosinophils # 0.2 K/mcL (0.0-0.6); Eosinophils % 1.9 %; Hematocrit 28.3 % (37.5-50.1); Hemoglobin 9.1 g/dL (12.9-16.9); Immature Granulocytes % 0.6 % (0-4); Lymphocytes # 1.5 K/mcL (0.6-4.6); Mean Corpuscular HGB Conc 32.2 g/dL (31.6-35.5); Mean Corpuscular Hemoglobin 25.3 pg (28.0-33.3); Mean Corpuscular Volume 78.6 fL (83.0-100.0); Mean Platelet Volume 8.7 fL (9.4-12.4); Monocytes # 1.3 K/mcL (0.0-1.3); Monocytes % 12.8 %; Neutrophils # 7.1 K/mcL (1.6-8.9); Nucleated Red Blood Cells 0.9 /100 WBC (0); Platelet Count 259 K/mcL (140-400); Red Cell Distribution Width 19.4 % (11.5-14.5); Segmented Neutrophils % 69.5 %; White Blood Count 10.2 K/mcL (4.3-11.1)
[2019-01-31 05:38] LABS: Calcium 8.2 mg/dL (8.6-10.3); Phosphorous 3.9 mg/dL (2.7-4.5); Potassium 3.7 mEq/L (3.5-5.1)
[2019-01-31] MEDS: Pantoprazole 40 MG VIAL IVP SCH ×2 (05:57→17:12)
--- NOTE | 2019-01-31 07:40 | Internal Med Progress Note ---
Hospitalist Progress Note - Encounter Date of Encounter: 01/31/19 Time of Encounter: 07:30 - Subjective Interval History: S/p endoscopy overnight. Stable this am - Exam Vitals: Temp Pulse Resp BP Pulse Ox 97.8 F 107 18 98/61 95 01/31/19 07:27 01/31/19 07:27 01/31/19 07:27 01/31/19 07:27 01/31/19 07:27 Exam: General appearance: Present: A&O X 3, no acute distress Head exam: Present: normocephalic Respiratory exam: decreased breath sounds Cardiovascular exam: Present: RRR, +S1, +S2. Absent: diastolic murmur, gallop, rubs, systolic murmur GI/Abdominal exam: Soft, NT, ND, +BS Extremities exam: Absent: pedal edema Neurological exam: Present: alert, oriented X3, no focal deficits. Absent: altered - Assessment and Plan (1) GI bleed Current Visit: Yes Status: Acute Assessment and Plan: Pt comes in with dark stools and a hemoglobin of 7.3 likely secondary to acute blood loss anemia from GI bleed Transfused 1 Unit of PRBC overnight. WIll transfuse to keep above 8 due to CAD Continue protonix BID. 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 Transfuse to keep hgb > 8 (4) CKD (chronic kidney disease) Current Visit: Yes Status: Acute Assessment and Plan: CKD stage 3. No acute worsening. Monitor creatinine with diuresis (5) Diabetes mellitus Current Visit: Yes Status: Acute Assessment and Plan: On insulin and monitor fingersticks (6) DVT prophylaxis Current Visit: Yes Status: Acute Assessment and Plan: SCDs - Time Spent with Patient Total time spent is greater than 50% in coordination of care (as documented) at patient's floor/unit and/or counseling patient: Internal Medicine: Result - Labs CBC & Chem 7: 01/31/19 04:09 01/31/19 04:09 Labs: Short CBC 01/31/19 Range/Units 04:09 WBC 10.2 (4.3-11.1) K/mcL Hgb 9.1 L (12.9-16.9) g/dL Hct 28.3 L (37.5-50.1) % Plt Count 259 (140-400) K/mcL Neutrophils # 7.1 (1.6-8.9) K/mcL BMP 01/31/19 04:09 Sodium 132 L Potassium 3.7 Chloride 98 Carbon Dioxide 22 L BUN 45 H Creatinine 1.52 H Glucose 129 H Calcium 8.2 L - ABG Interpretation ABG results: PT/INR, D-dimer PT 34.8 Seconds (9.4-12.1) H 01/29/19 19:07 - Impressions Impressions Echocardiogram 01/30/19 21:57 Impressions: LVEF 25%. Severe global and regional LV systolic dysfunction. Indeterminate diastolic function. Definity echo contrast was used. There is no LV thrombus. Right ventricular structure and systolic function are not optimally evaluated. Mild mitral regurgitation. Moderate tricuspid regurgitation. Mild pulmonic regurgitation. Moderate-severe pulmonary hypertension. A device lead was visualized in the right atrium and right ventricle. No prior echo for comparison. Left Ventricular Wall Motion: Rest Echo Findings The apical inferior, mid inferior, basal inferior, apical anterior, mid anterior, basal anterior, basal inferior septal, mid anterior lateral, mid inferior lateral, basal anterior septal and basal inferior lateral mercer were hypokinetic. The apex, apical septal, mid inferior septal, apical lateral and mid anterior septal mercer were akinetic. All other wall segments showed normal motion. Findings: Study Quality * Technically adequate exam. ECG Findings * Unclear underlying rhythm. Left Ventricle * Indeterminate diastolic function. * Definity echo contrast was used. * There is no LV thrombus. * LVEF 25%. * LV chamber size is normal. Right Ventricle * Right ventricular structure and systolic function are not optimally evaluated. Left Atrium * Normal left atrial size. Right Atrium * Moderately dilated right atrium. Aortic Valve * No aortic regurgitation. * Trileaflet aortic valve. * Mildly calcified aortic valve leaflets with decreased leaflet excursion. * No aortic stenosis. Mitral Valve * Mild mitral regurgitation. * Normal mitral valve structure. * No mitral stenosis. Tricuspid Valve * Normal tricuspid valve structure. * Moderate tricuspid regurgitation. * Estimated RA pressure is 20 mmHg. * Estimated RVSP is 62 mmHg. * Moderate-severe pulmonary hypertension. Pulmonic Valve * Pulmonic valve is not well visualized. * No pulmonic stenosis. * Mild pulmonic regurgitation. Pulmonary Artery * Pulmonary artery not well visualized. Aorta * Normally sized aortic root. Pericardium * There is no pericardial effusion present. Device lead * A device lead was visualized in the right atrium and right ventricle. Interatrial Septum * No evidence of PFO by color Doppler. IVC * The IVC is dilated. * < 50% respiratory change. Consult Discharge Plan - Plan [facility]errals: [facility] [Primary Care Provider[facility] - (1) GI bleed Qualifiers: GI bleed type/associated pathology: melena Qualified Code(s): K92.1 - Melena (2) CHF exacerbation Qualifiers: Heart failure type: unspecified Qualified Code(s): I50.9 - Heart failure, unspecified (3) Anemia Qualifiers: Anemia type: unspecified type Qualified Code(s): D64.9 - Anemia, unspecified (4) CKD (chronic kidney disease) Qualifiers: Chronic kidney disease stage: unspecified stage Qualified Code(s): N18.9 - Chronic kidney disease, unspecified (5) Diabetes mellitus Qualifiers: Diabetes mellitus type: type 2 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
[2019-01-31] MEDS: Insulin LISPRO 300 UNITS/3 ML VIAL SQ SCH ×4 (09:12→21:21)
[2019-01-31] MEDS: Insulin DETEMIR 100 UNIT/ML X5UNITS SQ SCH ×2 (09:13→21:31)
[2019-01-31] MEDS: Furosemide 40 MG/4 ML VIAL IVP SCH ×2 (12:47→17:12)
[2019-01-31] MEDS: Metoprolol XL (24 HR) Succ 25 MG TAB.ER.24H PO SCH ×2 (12:47→21:31)
[2019-02-01 04:42] LABS: Basophils % 0.3 %; Eosinophils # 0.2 K/mcL (0.0-0.6); Eosinophils % 2.2 %; Hematocrit 28.3 % (37.5-50.1); Hemoglobin 8.8 g/dL (12.9-16.9); Immature Granulocytes % 0.4 % (0-4); Lymphocytes # 1.5 K/mcL (0.6-4.6); Lymphocytes % 13.5 %; Mean Corpuscular HGB Conc 31.1 g/dL (31.6-35.5); Mean Corpuscular Hemoglobin 25.1 pg (28.0-33.3); Mean Corpuscular Volume 80.6 fL (83.0-100.0); Mean Platelet Volume 8.6 fL (9.4-12.4); Monocytes # 1.3 K/mcL (0.0-1.3); Monocytes % 11.9 %; Neutrophils # 7.8 K/mcL (1.6-8.9); Nucleated Red Blood Cells 0.6 /100 WBC (0); Platelet Count 236 K/mcL (140-400); Red Blood Count 3.51 M/mcL (4.19-5.50); Red Cell Distribution Width 19.4 % (11.5-14.5); Segmented Neutrophils % 71.7 %; White Blood Count 10.9 K/mcL (4.3-11.1)
[2019-02-01 05:10] LABS: Blood Urea Nitrogen 36 mg/dL (8-23); Calcium 8.1 mg/dL (8.6-10.3); Carbon Dioxide 23 mEq/L (23-29); Chloride 101 mEq/L (98-107); Glucose 129 mg/dL (70-105); Magnesium 1.9 mg/dL (1.6-2.6); Osmolality,Calculated 286 (280-300); Phosphorous 3.1 mg/dL (2.7-4.5); Potassium 3.4 mEq/L (3.5-5.1); Sodium 133 mEq/L (136-145)
[2019-02-01 05:26] LABS: BUN/Creatinine Ratio 26 (6-26); eGFR For African Americans > 60 (> 60); eGFR For Non-African Americans 50 (> 60)
[2019-02-01] MEDS: Pantoprazole 40 MG VIAL IVP SCH (06:32)
[2019-02-01 06:59] VITALS: BP 97/63
[2019-02-01] MEDS: Insulin LISPRO 300 UNITS/3 ML VIAL SQ SCH (07:31)
--- NOTE | 2019-02-01 08:08 | Discharge Summary ---
Date of Encounter: 02/01/19 Time of Encounter: 08:00 - Discharge Diagnosis (1) GI bleed Priority: Primary Status: Acute Assessment and Plan: 78 year old male with a history of DM, CHF with AICD and EF of 15%, intermittent afib who presented to the emergency department with the complaint of worsening swelling over the past 5 days. Patient states that he has been dealing with "congestion" since he had a stent placed in March. He states the congestion is the worst in his abdomen and legs. He has also had worsening shortness of breath over these past 5 days and believes that he is in a CHF exacerbation. The patient does take Plavix and Eliquis for his stent and atrial fibrillation. His hemoglobin was found to be 7.3 while he was in the emergency department and when asked he noted that he has had some dark tarry stools for the past several days as well. He was assessed with acute blood loss anemia 2/2 to GI bleed and acute on chronic systolic CHF. He came in with dark stools and a hemoglobin of 7.3 likely secondary to acute blood loss anemia from GI bleed. He was transfused a total of 3 units of PRBC. HE had an endoscopy done showing a bleeding angiodysplastic lesion which was cauterized. Discussed with Dr. Weiner, due to recent stent placement less than a year ago, will resume plavix and eliquis on discharge. Fro his worsening CHF, he was diuresed with lasix BID and he improved. He was discharged in a stable condition. 35 minutes was spent discharging this patient Qualifiers: GI bleed type/associated pathology: melena Qualified Code(s): K92.1 - Melena (2) CHF exacerbation Priority: Primary Status: Acute Qualifiers: Heart failure type: unspecified Qualified Code(s): I50.9 - Heart failure, unspecified (3) Anemia Priority: Primary Status: Acute Qualifiers: Anemia type: unspecified type Qualified Code(s): D64.9 - Anemia, unspecified (4) CKD (chronic kidney disease) Priority: Primary Status: Acute Qualifiers: Chronic kidney disease stage: unspecified stage Qualified Code(s): N18.9 - Chronic kidney disease, unspecified (5) Diabetes mellitus Priority: Primary Status: Acute Qualifiers: Diabetes mellitus type: type 2 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 Graham is a 78 year old male - Time Spent with Patient Total time spent providing and/or coordinating discharge services: - Discharge Medications Prescriptions: New Omeprazole [PriLOSEC] 40 mg PO BIDAC #60 capsule. Furosemide [Lasix] 40 mg PO DAILY #60 tab Continued Clopidogrel [Plavix] 75 mg PO HS Atorvastatin [Lipitor] 40 mg PO HS Metoprolol Succinate [[place] Sprinkle] 12.5 mg PO Q12H Apixaban [Eliquis] 5 mg PO BID Insulin ASPART [Novolog Flexpen] 5 unit SQ BIDWM Insulin Glargine,Hum.rec.anlog [Lantus Solostar] 12 unit SQ HS Spironolactone [Aldactone] 25 mg PO DAILY PRN PRN Reason: Edema Sertraline [Zoloft] 25 mg PO DAILY Potassium Chloride [Klor-Con 10] 20 meq PO DAILY Midodrine [ProAmatine] 7.5 mg PO BID Midodrine [ProAmatine] 5 mg PO HS Lisinopril [Zestril] 2.5 mg PO DAILY Terbinafine HCl [Lamisil At] 1 applic TP DAILY Home Medications: Atorvastatin [Lipitor] 40 mg PO HS 05/08/18 [History] Clopidogrel [Plavix] 75 mg PO HS 05/08/18 [History] Metoprolol Succinate [[place]sp[place] Sprinkle] 12.5 mg PO Q12H 05/08/18 [History] Apixaban [Eliquis] 5 mg PO BID 01/29/19 [History] Insulin ASPART [Novolog Flexpen] 5 unit SQ BIDWM 01/30/19 [History] Insulin Glargine,Hum.rec.anlog [Lantus Solostar] 12 unit SQ HS 01/30/19 [History] Lisinopril [Zestril] 2.5 mg PO DAILY 01/30/19 [History] Midodrine [ProAmatine] 5 mg PO HS 01/30/19 [History] Midodrine [ProAmatine] 7.5 mg PO BID 01/30/19 [History] Potassium Chloride [Klor-Con 10] 20 meq PO DAILY 01/30/19 [History] Sertraline [Zoloft] 25 mg PO DAILY 01/30/19 [History] Spironolactone [Aldactone] 25 mg PO DAILY PRN 01/30/19 [History] Terbinafine HCl [Lamisil At] 1 applic TP DAILY 01/30/19 [History] Furosemide [Lasix] 40 mg PO DAILY #60 tab 02/01/19 [Rx] Omeprazole [PriLOSEC] 40 mg PO BIDAC #60 capsule. 02/01/19 [Rx] Allergies/Adverse Reactions: Allergy/AdvReac Type Severity Reaction Status Date / Time No Known Allergies Allergy Verified 01/29/19 18:48 Date of admission: 01/29/19 21:33 Primary care physician: PCP PARAS Consults: 01/29/19 23:34 Consult to Gastroenterology [CONS] Routine Consulting Provider: Gastroenterology Mary Reason for Consult: Concern for upper GI bleed. Call Completed: No - Constitutional Vitals: Temp Pulse Resp BP Pulse Ox 97.6 F 90 16 97/63 98 02/01/19 06:55 02/01/19 06:55 02/01/19 06:55 02/01/19 06:55 02/01/19 06:55 General appearance: Present: A&O X 3, pleasant, no acute distress Exam: General appearance: Present: A&O X 3, no acute distress Head exam: Present: normocephalic Respiratory exam: decreased breath sounds Cardiovascular exam: Present: RRR, +S1, +S2. Absent: diastolic murmur, gallop, rubs, systolic murmur GI/Abdominal exam: Soft, NT, ND, +BS Extremities exam: Absent: pedal edema Neurological exam: Present: alert, oriented X3, no focal deficits. Absent: altered - Patient Status Disposition: Home, Self-Care Condition: Fair - Discharge Instructions Follow Up With: PARASPCP [Primary Care Provider] - 02/06/19 10:30 am Forms: ED Satisfaction Letter
[2019-02-01] MEDS: Furosemide 40 MG/4 ML VIAL IVP SCH (09:25)
[2019-02-01] MEDS: Insulin DETEMIR 100 UNIT/ML X5UNITS SQ SCH (09:27)
[2019-02-01] MEDS: Metoprolol XL (24 HR) Succ 25 MG TAB.ER.24H PO SCH (10:28)
== END 2019-02-01 11:56 | disposition home or self-care (01) | DRG 377 ==
LOC: EMEROOARM 18:35 → ICNU 21:33 → 3ANU 01-30 17:20
PROVIDERS: ADMIT Pediatrics; ATTEND Pediatrics

== ENCOUNTER 2019-02-08 15:15 | Inpatient (IN) ==
[2019-02-08] MEDS ORDERED: Pantoprazole 40 MG VIAL IVP ONE (15:26)
[2019-02-08] MEDS: 0.9 % Sodium Chloride 1,000 ML IVC SCH (16:03)
[2019-02-08] MEDS ORDERED: Naloxone 0.4 MG/ML INJ IVP PRN (16:53)
[2019-02-08] MEDS ORDERED: *HR* Dextrose 50 % in Water (Syg) 50 ML SYRINGE IVP PRN (17:19)
[2019-02-08] MEDS ORDERED: Dextrose Gel 15 GM/37.5 ML TUBE PO PRN ×2 (17:19)
[2019-02-08] MEDS ORDERED: D5% in Water 1,000 ML IVC PRN (17:19)
[2019-02-08] MEDS: Insulin LISPRO 300 UNITS/3 ML VIAL SQ SCH ×2 (19:48→20:15)
[2019-02-08 22:11] LABS: Basophils # 0.1 K/mcL (0.0-0.2); Basophils % 0.5 %; Eosinophils # 0.3 K/mcL (0.0-0.6); Eosinophils % 2.5 %; Hematocrit 31.7 % (37.5-50.1); Hemoglobin 9.7 g/dL (12.9-16.9); Immature Granulocytes % 0.4 % (0-4); Lymphocytes # 1.9 K/mcL (0.6-4.6); Lymphocytes % 17.8 %; Mean Corpuscular HGB Conc 30.6 g/dL (31.6-35.5); Mean Corpuscular Hemoglobin 24.7 pg (28.0-33.3); Mean Corpuscular Volume 80.7 fL (83.0-100.0); Mean Platelet Volume 8.8 fL (9.4-12.4); Neutrophils # 7.4 K/mcL (1.6-8.9); Platelet Count 201 K/mcL (140-400); Red Blood Count 3.93 M/mcL (4.19-5.50); Red Cell Distribution Width 20.7 % (11.5-14.5); Segmented Neutrophils % 69.8 %; White Blood Count 10.6 K/mcL (4.3-11.1)
[2019-02-09] MEDS: 0.9 % Sodium Chloride 1,000 ML IVC SCH (02:20)
[2019-02-09 05:25] LABS: Basophils % 0.4 %; Eosinophils # 0.2 K/mcL (0.0-0.6); Eosinophils % 2.4 %; Hematocrit 29.8 % (37.5-50.1); Hemoglobin 9.1 g/dL (12.9-16.9); Immature Granulocytes % 0.4 % (0-4); Lymphocytes # 1.6 K/mcL (0.6-4.6); Lymphocytes % 17.2 %; Mean Corpuscular HGB Conc 30.5 g/dL (31.6-35.5); Mean Corpuscular Hemoglobin 24.7 pg (28.0-33.3); Mean Platelet Volume 8.7 fL (9.4-12.4); Monocytes # 0.9 K/mcL (0.0-1.3); Monocytes % 9.7 %; Neutrophils # 6.4 K/mcL (1.6-8.9); Platelet Count 203 K/mcL (140-400); Red Blood Count 3.68 M/mcL (4.19-5.50); Red Cell Distribution Width 20.5 % (11.5-14.5); Segmented Neutrophils % 69.9 %; White Blood Count 9.2 K/mcL (4.3-11.1)
[2019-02-09 05:33] LABS: INR 2.1; Prothrombin Time 24.3 Seconds (9.4-12.1)
[2019-02-09 05:47] LABS: BUN/Creatinine Ratio 20 (6-26); Blood Urea Nitrogen 28 mg/dL (8-23); Calcium 8.8 mg/dL (8.6-10.3); Carbon Dioxide 27 mEq/L (23-29); Chloride 102 mEq/L (98-107); Glucose 99 mg/dL (70-105); Magnesium 1.9 mg/dL (1.6-2.6); Osmolality,Calculated 294 (280-300); Phosphorous 3.6 mg/dL (2.7-4.5); Potassium 4.4 mEq/L (3.5-5.1); Sodium 139 mEq/L (136-145); eGFR For African Americans > 60 (> 60); eGFR For Non-African Americans 50 (> 60)
[2019-02-09] MEDS ORDERED: Pantoprazole 40 MG VIAL IVP SCH (06:00)
[2019-02-09] MEDS: Insulin LISPRO 300 UNITS/3 ML VIAL SQ SCH ×5 (08:35→21:43)
[2019-02-09] MEDS ORDERED: *HR* Etomidate 40 MG/20 ML VIAL IVP ONE (11:27)
[2019-02-09] MEDS ORDERED: Acetaminophen 650 MG RECTAL SUPP RC ONE (11:27)
[2019-02-09] MEDS ORDERED: Lidocaine -MPF 2% 2 ML VIAL ONE (11:31)
[2019-02-09] MEDS ORDERED: *HR* Propofol 200 MG/20 ML VIAL IVP ONE (11:33)
[2019-02-09] MEDS ORDERED: Esmolol 100 MG/10 ML VIAL IVP ONE (11:49)
[2019-02-09] MEDS: Sucralfate 1 GM TABLET PO SCH ×3 (12:46→20:35)
[2019-02-09] MEDS: Clotrimazole 1% CRM 15 GM TUBE TP SCH ×2 (12:47→21:35)
[2019-02-09] MEDS: Pantoprazole 40 MG in 0.9 % Sodium Chloride Mini Bag 100 ML IVC SCH ×3 (13:09→23:17)
[2019-02-09] MEDS ORDERED: NON-FORMULARY MEDICATION 1 EACH EACH (Insulin Aspart [Novolog Flexpen] 5 UNIT) SQ SCH (17:00)
[2019-02-09 19:08] LABS: Hematocrit 34.4 % (37.5-50.1); Hemoglobin 10.3 g/dL (12.9-16.9)
[2019-02-09] MEDS: Insulin DETEMIR 100 UNIT/ML X5UNITS SQ SCH (21:28)
[2019-02-10] MEDS: Pantoprazole 40 MG in 0.9 % Sodium Chloride Mini Bag 100 ML IVC SCH ×4 (04:25→21:17)
[2019-02-10 06:19] LABS: Basophils # 0.1 K/mcL (0.0-0.2); Basophils % 0.7 %; Eosinophils # 0.1 K/mcL (0.0-0.6); Eosinophils % 1.5 %; Hematocrit 30.3 % (37.5-50.1); Hemoglobin 9.2 g/dL (12.9-16.9); Immature Granulocytes % 0.4 % (0-4); Lymphocytes # 1.6 K/mcL (0.6-4.6); Lymphocytes % 17.6 %; Mean Corpuscular HGB Conc 30.4 g/dL (31.6-35.5); Mean Corpuscular Hemoglobin 24.1 pg (28.0-33.3); Mean Corpuscular Volume 79.3 fL (83.0-100.0); Mean Platelet Volume 8.9 fL (9.4-12.4); Monocytes % 10.6 %; Neutrophils # 6.3 K/mcL (1.6-8.9); Platelet Count 221 K/mcL (140-400); Red Blood Count 3.82 M/mcL (4.19-5.50); Red Cell Distribution Width 20.7 % (11.5-14.5); Segmented Neutrophils % 69.2 %; White Blood Count 9.1 K/mcL (4.3-11.1)
[2019-02-10 06:38] LABS: BUN/Creatinine Ratio 20 (6-26); Blood Urea Nitrogen 25 mg/dL (8-23); Calcium 8.5 mg/dL (8.6-10.3); Carbon Dioxide 25 mEq/L (23-29); Chloride 103 mEq/L (98-107); Glucose 66 mg/dL (70-105); Osmolality,Calculated 283 (280-300); Phosphorous 3.3 mg/dL (2.7-4.5); Sodium 135 mEq/L (136-145); eGFR For African Americans > 60 (> 60); eGFR For Non-African Americans 55 (> 60)
[2019-02-10] MEDS: Insulin LISPRO 300 UNITS/3 ML VIAL SQ SCH ×6 (09:09→21:22)
[2019-02-10] MEDS: Sucralfate 1 GM TABLET PO SCH ×4 (09:10→21:18)
[2019-02-10] MEDS: Clotrimazole 1% CRM 15 GM TUBE TP SCH ×2 (09:11→21:22)
[2019-02-10] MEDS ORDERED: NON-FORMULARY MEDICATION 1 EACH EACH (Atorvastatin Calcium [Lipitor] 40 MG) PO SCH (18:00)
[2019-02-10] MEDS: Insulin DETEMIR 100 UNIT/ML X5UNITS SQ SCH (22:02)
[2019-02-11] MEDS: Pantoprazole 40 MG in 0.9 % Sodium Chloride Mini Bag 100 ML IVC SCH ×4 (05:25→21:33)
[2019-02-11 07:54] LABS: Basophils # 0.1 K/mcL (0.0-0.2); Basophils % 0.6 %; Eosinophils # 0.2 K/mcL (0.0-0.6); Eosinophils % 2.5 %; Hematocrit 33.9 % (37.5-50.1); Hemoglobin 10.1 g/dL (12.9-16.9); Immature Granulocytes % 0.6 % (0-4); Lymphocytes # 1.9 K/mcL (0.6-4.6); Lymphocytes % 19.2 %; Mean Corpuscular HGB Conc 29.8 g/dL (31.6-35.5); Mean Corpuscular Hemoglobin 24.2 pg (28.0-33.3); Mean Corpuscular Volume 81.3 fL (83.0-100.0); Mean Platelet Volume 8.8 fL (9.4-12.4); Monocytes % 10.1 %; Neutrophils # 6.5 K/mcL (1.6-8.9); Platelet Count 233 K/mcL (140-400); Red Blood Count 4.17 M/mcL (4.19-5.50); Red Cell Distribution Width 21.1 % (11.5-14.5); White Blood Count 9.7 K/mcL (4.3-11.1)
[2019-02-11 08:04] LABS: BUN/Creatinine Ratio 19 (6-26); Blood Urea Nitrogen 25 mg/dL (8-23); Calcium 9.1 mg/dL (8.6-10.3); Carbon Dioxide 23 mEq/L (23-29); Chloride 102 mEq/L (98-107); Glucose 108 mg/dL (70-105); Osmolality,Calculated 283 (280-300); Phosphorous 3.2 mg/dL (2.7-4.5); Potassium 4.4 mEq/L (3.5-5.1); Sodium 134 mEq/L (136-145); eGFR For African Americans > 60 (> 60); eGFR For Non-African Americans 53 (> 60)
[2019-02-11] MEDS: Furosemide 20 MG TABLET PO SCH ×2 (08:30→08:33)
[2019-02-11] MEDS: Sucralfate 1 GM TABLET PO SCH ×4 (08:30→21:33)
[2019-02-11] MEDS: Clotrimazole 1% CRM 15 GM TUBE TP SCH ×2 (08:31→21:38)
[2019-02-11] MEDS: Insulin LISPRO 300 UNITS/3 ML VIAL SQ SCH ×6 (08:31→21:36)
[2019-02-11] MEDS ORDERED: Furosemide 40 MG/4 ML VIAL IVP ONE (12:47)
[2019-02-11] MEDS: Insulin DETEMIR 100 UNIT/ML X5UNITS SQ SCH (21:34)
[2019-02-12] MEDS: Pantoprazole 40 MG in 0.9 % Sodium Chloride Mini Bag 100 ML IVC SCH ×3 (04:29→07:58)
[2019-02-12 06:43] LABS: Basophils # 0.1 K/mcL (0.0-0.2); Basophils % 0.7 %; Eosinophils # 0.2 K/mcL (0.0-0.6); Eosinophils % 2.3 %; Hematocrit 32.5 % (37.5-50.1); Hemoglobin 9.8 g/dL (12.9-16.9); Immature Granulocytes % 0.3 % (0-4); Lymphocytes # 1.5 K/mcL (0.6-4.6); Lymphocytes % 16.7 %; Mean Corpuscular HGB Conc 30.2 g/dL (31.6-35.5); Mean Corpuscular Volume 79.7 fL (83.0-100.0); Mean Platelet Volume 8.3 fL (9.4-12.4); Monocytes # 0.8 K/mcL (0.0-1.3); Monocytes % 8.9 %; Neutrophils # 6.5 K/mcL (1.6-8.9); Platelet Count 225 K/mcL (140-400); Red Blood Count 4.08 M/mcL (4.19-5.50); Red Cell Distribution Width 20.6 % (11.5-14.5); Segmented Neutrophils % 71.1 %; White Blood Count 9.1 K/mcL (4.3-11.1)
[2019-02-12 07:06] LABS: Phosphorous 3.5 mg/dL (2.7-4.5); Potassium 4.1 mEq/L (3.5-5.1)
[2019-02-12 07:07] VITALS: BP 110/76
[2019-02-12] MEDS: Insulin LISPRO 300 UNITS/3 ML VIAL SQ SCH ×3 (07:52→12:04)
[2019-02-12] MEDS: Furosemide 20 MG TABLET PO SCH (08:10)
[2019-02-12] MEDS: Sucralfate 1 GM TABLET PO SCH ×2 (08:11→11:54)
[2019-02-12] MEDS: Clotrimazole 1% CRM 15 GM TUBE TP SCH (08:22)
== END 2019-02-12 12:32 | disposition home or self-care (01) | DRG 378 ==
LOC: EMEROOARM 15:15 → 3ANU 17:14 → SUATTDRO 17:14 → 3ANU 18:30
PROVIDERS: ADMIT Internal Medicine; ATTEND Internal Medicine
PROC: ENDOEBX (2019-02-09 09:30)